=== PATIENT | female | born 1995 | race Caucasian/White ===

== ENCOUNTER 2022-08-13 14:58 | Emergency (ER) | payer OTHER, SELFPAY ==
[2022-08-13 15:14] VITALS: BP 152/99; PULSE 106; RESP 16; TEMP 36.7; O2SAT 99
[2022-08-13] MEDS: AMOXICILLIN/CLAVULANATE K 875-125 MG TAB 1 TABLET PO (16:58)
[2022-08-13] MEDS: TETANUS,DIPHTHERIA,AC PERTUSSIS ADULT (0.5 ML) BOOSTRIX IM (16:59)
--- NOTE | 2022-08-13 17:07 | ED.GENADULT ---
HPI - General Adult General Chief complaint: Animal Bite Stated complaint: left foot abrasion Time Seen by Provider: 08/13/22 16:06 History of Present Illness HPI narrative: 26-year-old female presents to our department after she was attacked by her roommates cat. Patient states that when she walked by the cat the cat scratched and bit her left foot just prior to arrival. She is unsure if her tetanus is up-to-date. This is a domestic cat that lives in the house but she is unsure about the animals vaccine status. Related Data Allergies Allergy/AdvReac Type Severity Reaction Status Date / Time No Known Drug Allergies Allergy Unverified 08/13/22 16:39 Review of Systems Review of Systems: CONSTITUTIONAL: Denies fever, chills, or sweats. EYES: Denies visual changes, redness, or discharge. ENT: Denies rhinorrhea, congestion, sore throat, or otalgia. CARDIOVASCULAR: Denies chest pain, palpitations, or edema. RESPIRATORY: Denies cough or dyspnea. GASTROINTESTINAL: Denies abdominal pain, nausea, vomiting, or diarrhea. GENITOURINARY: Denies dysuria or hematuria. SKIN: Denies rash or itching. MUSCULOSKELETAL: Denies back pain, joint pain, or myalgia. NEUROLOGIC: Denies headache, numbness, or weakness. PSYCHIATRIC: Denies anxiety or depression. Exam Narrative: GENERAL: Well-appearing, well-nourished, and in no acute distress. HEAD: Normocephalic, atraumatic. EYES: PERRLA and EOMI. ENT: Nares clear, no rhinorrhea or epistaxis. Mucous membranes moist. NECK: Supple. CHEST: Clear to auscultation. No respiratory distress. HEART: Regular rate and rhythm. No murmur heard. Normal peripheral pulses. ABDOMEN: Soft, nontender, nondistended, normal active bowel sounds. EXTREMITIES: Normal range of motion. No edema. SKIN: Warm, dry, no rash. Multiple scratches and small puncture wounds noted on patient's left foot. There is a minimal amount of swelling. No erythema or tracking. NEURO: No focal deficits. Alert and oriented x3. PSYCH: Normal mood and affect. Course Vital Signs Vital signs: Vital Signs Temperature 98.0 F 08/13/22 15:14 Pulse Rate 106 H 08/13/22 15:14 Respiratory Rate 16 08/13/22 15:14 Blood Pressure 152/99 H 08/13/22 15:14 Pulse Oximetry 99 08/13/22 15:14 Oxygen Delivery Room Air 08/13/22 15:14 Temperature 98.0 F 08/13/22 15:14 Pulse Rate 106 H 08/13/22 15:14 Respiratory Rate 16 08/13/22 15:14 Blood Pressure 152/99 H 08/13/22 15:14 Pulse Oximetry 99 08/13/22 15:14 Oxygen Delivery Room Air 08/13/22 15:14 Medical Decision Making MDM Narrative Medical decision making narrative: Animal control paperwork has been filed. We will give a tetanus shot and antibiotic therapy. No evidence of cellulitis or abscess. No further intervention warranted at this time. Vital Signs Vital Signs: Vital Signs Temperature 98.0 F 08/13/22 15:14 Pulse Rate 106 H 08/13/22 15:14 Respiratory Rate 16 08/13/22 15:14 Blood Pressure 152/99 H 08/13/22 15:14 Pulse Oximetry 99 08/13/22 15:14 Oxygen Delivery Room Air 08/13/22 15:14 Temperature 98.0 F 08/13/22 15:14 Pulse Rate 106 H 08/13/22 15:14 Respiratory Rate 16 08/13/22 15:14 Blood Pressure 152/99 H 08/13/22 15:14 Pulse Oximetry 99 08/13/22 15:14 Oxygen Delivery Room Air 08/13/22 15:14 Discharge Plan Discharge Clinical Impression: Cat bite Patient Disposition: Home, Self-Care Condition: Stable Instructions: Antibiotic Form Additional Instructions: Please take all medications as directed. We have faxed paperwork to animal control who will determine the need for quarantine of the animal. Return to the ER if you begin to develop signs of infection such as worsening redness, pain or fever. Prescriptions: New amoxicillin-pot clavulanate 875-125 mg tablet 1 tablet PO Q12H 7 Days Qty: 14 0RF Follow-up/Referrals: PHYSICIAN,INDUSTRIAL MAINTENA[employer]CE ELECTRICIAN [Primary Care Provider] - Time of Disposition: 1
== END 2022-08-13 17:39 | disposition home or self-care (01) ==
PROVIDERS: Emergency Provider Emergency Medicine
DX: S91.352A Open bite, left foot, initial encounter (principal); Z23 Encounter for immunization; W55.01XA Bitten by cat, initial encounter
CPT/HCPCS: 90471; 90715; 99283; A9270